=== PATIENT | female | born 1990 | race Two or more races ===

== ENCOUNTER 2025-01-22 23:18 | Emergency (ER) | payer MEDICAID, OTHER ==
[~2025-01-22] VITALS: Ht 162.6 cm; Wt 70.0 kg
[2025-01-22 23:21] VITALS: BP 147/98; PULSE 110; RESP 16; TEMP 98.7; O2SAT 97
--- NOTE | 2025-01-22 23:56 | ED.PDOC ---
History of Present Illness HPI Comments 34 y/o F presents with c/c pelvic pain. Onset of pain after using the restroom. Describes pressure-like pain with cramping sensation from her vaginal area, with "flesh" emanating from it. Denies having any further associated symptoms. Patient thinks she has uterine prolapse. Although this has never happened before. No bleeding, no discharge. Chief Complaint: Pelvic Pain Time Seen by MD: 23:50 Allergies: Coded Allergies: NO KNOWN ALLERGIES (Unverified , 01/22/25) Information Source: Patient Mode of Arrival: Ambulatory Past Medical History PAST MEDICAL HISTORY: Denies Surgical History: Denies all surgeries BOW REHAIRER History: Denies all BOW REHAIRER Hx Family History Family History: Unknown Social History Smoker: Non-Smoker Alcohol: Denies ETOH Use Drugs: Denies Drug Use Lives In: Home All Other Systems: Reviewed and Negative (as per HPI) Physical Exam General Appearance: No Apparent Distress, Normal HEENT: Normal ENT Inspection, Pharynx Normal, TMs Normal Neck: Full Range of Motion, Non-Tender, Normal, Normal Inspection Respiratory: Chest Non-Tender, Lungs Clear, No Accessory Muscle Use, No Respiratory Distress, Normal Breath Sounds Cardiovascular: No Edema, No JVD, No Murmur, No Gallop, Normal Peripheral Pulses, Regular Rate/Rhythm Breast Exam: Deferred Gastrointestinal: No Organomegaly, Non Tender, No Pulsatile Mass, Normal Bowel Sounds, Soft Genitalia: Deferred Pelvic: Deferred Rectal: Deferred Extremities: No calf tenderness, Normal capillary refill, Normal inspection, Normal range of motion, Non-tender, No pedal edema Musculoskeletal : Apperance: Normal Neurologic: Alert, wildlife biology technician II-XII nml as Tested, No Motor Deficits, Normal Affect, Normal Mood, No Sensory Deficits Cerebellar Function: Normal Reflexes: Normal Skin: Dry, Normal Color, Warm Lymphatic: No Adenopathy Was a procedure done? Was a procedure done?: No Differential Dx Considerations may include: prolapsed uterus, PID, among others X-Ray, Labs, Meds, VS Vital Signs Date Time Temp Pulse Resp B/P (MAP) Pulse Ox O2 Delivery O2 Flow Rate FiO2 01/22/25 23:21 98.7 110 16 147/98 97 98.7 Time of 1ST Reevaluation: 00:20 Reevaluation 1ST: Unchanged Time of 2ND Reevaluation: 02:46 Reevaluation 2ND: Eloped Patient Education/Counseling: Diagnosis, Treatment, Need For Follow Up Family Education/Counseling: Diagnosis, Treatment, Need For Follow Up Comments Due to overcrowding, we are unable to find a place to perform the pelvic exam. By the time we secure a space to do the pelvic exam patient had eloped Additional Information Previous visits: N/A The following tests were ordered, and results were reviewed by me: N/A Additional Information was gathered from interviewing the following independent historians: N/A I reviewed and agreed with the following test results read by other providers: N/A I discussed treatment and results with medical personnel and: patient SEPSIS Sepsis Screen Date sepsis recognized/suspect: Jan 22, 2025 Time Sepsis recognized/suspect: 2320 Recent Procedure: No On Antibiotic Therapy: No Respiratory Rate >20: No Heart Rate >90: Yes Temp<36 C (96.8 F) or >38.3 C: No SBP <90 or MAP <65 mmHG: No New Acute Mental Status Change: No Is the patient on CPAP, BIPAP,: No Physician Orders Pelvic Setup (01/22/25 ) Vital Signs Date Time Temp Pulse Resp B/P (MAP) Pulse Ox O2 Delivery O2 Flow Rate FiO2 01/22/25 23:21 98.7 110 16 147/98 97 98.7 Departure 1 Departure Time of Disposition: 02:46 Impression: Primary Impression: Pelvic pain Disposition: 07 LEFT AWOL/ELOPED Condition: Other (Unknown) Critical Care Note Critical Care Time?: No Stability Stability form required: No Heart Score Heart Score: Heart Score Response (Comments) Value History N/A 0 EKG N/A 0 Age N/A 0 Risk Factors N/A 0 Troponin N/A 0 Total 0 I personally scribed for CANDI REID MD ([email or web address]) on 01/22/25 at 23:56. Electronically submitted by Davian Arias ([email or web address]). CANDI REID MD Jan 22, 2025 23:56
== END 2025-01-23 01:55 | disposition left against medical advice (07) ==
LOC: ER 23:18
DX: R10.2 Pelvic and perineal pain (principal); Z79.899 Other long term (current) drug therapy